=== PATIENT | female | born 1935 | race Caucasian/White ===

== ENCOUNTER 2017-06-22 19:14 | Observation (INO) | payer MEDICARE ==
[~2017-06-22] VITALS: Ht 165.1 cm; Wt 84.2 kg
[2017-06-22] VITALS (7 sets, daily range): BP systolic 130–208; BP diastolic 73–98; PULSE 63–75; RESP 18; TEMP 98–98.1; O2SAT 97–99
--- NOTE | 2017-06-22 19:42 | RADRPT ---
EXAM DATE/TIME: 06/22/2017 19:29 [facility] COMPARISON: No previous studies available for comparison. INDICATIONS : Stroke alert, visual changes today. RADIATION DOSE: 56.35 CTDIvol (mGy) This report was called by to Dr. Deutsch at 7: 39pm, with the call initiated at 7:35pm MEDICAL HISTORY : Non-responsive. SURGICAL HISTORY : Non-responsive. ENCOUNTER: Initial ACUITY: 1 day PAIN SCALE: Non-responsive LOCATION: Bilateral head TECHNIQUE: Multiple contiguous axial images were obtained of the head. Using automated exposure control and adj ustment of the mA and/or kV according to patient size, radiation dose was kept as low as reasonably a chievable to obtain optimal diagnostic quality images. DICOM format image data is available electro nically for review and comparison. FINDINGS: The patient is canted in the gantry creating some asymmetries. CEREBRUM: The ventricles are normal for age. No evidence of midline shift, mass lesion, hemorrhage or acute in farction. Symmetric bilateral decreased attenuation in the supratentorial white matter, more promine nt in the frontal and in the occipital region characteristic of ischemic change. There is associated extra-axial enlargement of the frontal horns. No extra-axial fluid collections are seen. POSTERIOR FOSSA: The cerebellum and brainstem are intact. The 4th ventricle is midline. The cerebellopontine angle i s unremarkable. EXTRACRANIAL: The visualized portion of the orbits is intact. SKULL: The calvaria is intact. No evidence of skull fracture. CONCLUSION: No acute findings in the brain. No evidence of acute hemorrhage. Ischemic white matter change in th e supratentorial brain. Maurice Mendez MD on June 22, 2017 at 19:35 Board Certified Radiologist. This report was verified electronically.
[2017-06-22 19:52] LABS: AUTOMATED NEUTROPHIL # 6.3 TH/MM3 (1.8-7.7); BASOPHIL % 0.4 % (0.0-2.0); EOSINOPHIL # 0.1 TH/MM3 (0-0.4); EOSINOPHIL % 1.6 % (0.0-4.0); HEMATOCRIT 37.1 % (35.0-46.0); HEMOGLOBIN 12.8 GM/DL (11.6-15.3); LYMPH % 15.3 % (9.0-44.0); LYMPHOCYTE # 1.3 TH/MM3 (1.0-4.8); MEAN CORPUSCULAR HEMOGLOBIN 32.6 PG (27.0-34.0); MEAN CORPUSCULAR HGB CONC 34.7 % (32.0-36.0); MEAN PLATELET VOLUME 7.1 FL (7.0-11.0); MONO % 7.3 % (0.0-8.0); MONOCYTE # 0.6 TH/MM3 (0-0.9); NEUT % 75.4 % (16.0-70.0); PLATELET COUNT 274 TH/MM3 (150-450); RED BLOOD COUNT 3.94 MIL/MM3 (4.00-5.30); RED CELL DISTRIBUTION WIDTH 12.7 % (11.6-17.2); WHITE BLOOD COUNT 8.4 TH/MM3 (4.0-11.0)
[2017-06-22] MEDS ORDERED: IOHEXOL 350 MG/ML 10 ML VIAL (for RAD DIAG) IVCONTRAST ONE (19:53)
[2017-06-22 19:58] LABS: PROTHROMBIN TIME - PATIENT 10.2 SEC (9.8-11.6)
[2017-06-22] MEDS ORDERED: ONDANSETRON HCL 4 MG/2 ML VIAL IV PUSH ONE (20:00)
[2017-06-22] MEDS ORDERED: MORPHINE SULFATE 2 MG/ML INJ IV PUSH ONE ×2 (20:00→21:00)
--- NOTE | 2017-06-22 20:00 | PD ---
HPI Chief Complaint: Headache Time Seen by Provider: 19:22 Travel History International Travel<30 days: No Contact w/Intl Traveler<30days: No Traveled to known affect area: No History of Present Illness HPI 82-year-old female presents to the emergency department by EMS transport for evaluation of sudden onset worst ever left frontal retro-orbital headache onset just prior to arrival to the emergency department 9/10 in intensity associated with nausea. Patient denies any visual disturbance or vision loss and denies any blurred vision or diplopia. Patient denies any dizziness, balance disturbance, confusion, difficulty with speech, upper or lower extremity numbness tingling or weakness. According to throat cutter report patient was quite hypertensive upon their initial assessment and patient reports that occasionally she has had bouts of elevated blood pressure but has never been on antihypertensive medication/therapy. Patient does have history of rheumatoid arthritis and pulmonary fibrosis. Patient denies taking any blood thinning agents other than low-dose aspirin. Patient reportedly had similar less intense headache last evening that resolved after Aleve. Patient did take 2 Aleve prior to arrival to the emergency department. Patient denies chest pain palpitations shortness of breath or referred neck jaw back shoulder arm pain. Patient denies any history of migraine or routine headaches. No recent febrile illness or respiratory illness. PFSH Past Medical History Narrative Medical Rheumatoid arthritis, pulmonary fibrosis, no tobacco use; nursing notes reviewed Social History Tobacco Use: No Allergies-Medications (Allergen,Severity, Reaction): Coded Allergies: Sulfa (Sulfonamide Antibiotics) (Verified Allergy, Severe, 06/22/17) Reported Meds & Prescriptions Reported Meds & Active Scripts Active Reported Ambien (Zolpidem Tartrate) 5 Mg Tab 5 Mg PO HS PRN Vitamin C (Ascorbic Acid) 250 Mg Chew 500 Mg CHEW DAILY Methenamine Hippurate 1 Gram Tab 1 Gm PO BID Levothyroxine (Levothyroxine Sodium) 88 Mcg Tab 88 Mcg PO DAILY Prednisone 5 Mg Tab 5 Mg PO DAILY Prozac (Fluoxetine HCl) 40 Mg Cap 40 Mg PO DAILY Review of Systems Except as stated in HPI: all other systems reviewed are Neg General / Constitutional: No: Fever, Chills Eyes: Positive: Photophobia, No: Diploplia, Blurred Vision, Redness, Foreign Body Sensation, Pain, Blind Spots, Visual changes, Blindness HENT: Positive: Headaches, No: Vertigo, Lightheadedness, Congestion, Neck Stiffness, Neck Pain Cardiovascular: No: Chest Pain or Discomfort, Palpitations, Syncope Respiratory: No: Shortness of Breath Gastrointestinal: Positive: Nausea, No: Vomiting Genitourinary: No: Flank Pain Musculoskeletal: No: Myalgias, Arthralgias, Weakness, Cramping, Edema, Pain Skin: No Rash Neurologic: Positive: Headache, No: Weakness, Dizziness, Syncope, Focal Abnormalities, Coordination Problem, Ataxia, Change in Mentation, Slurred Speech , Paresthesia, Seizures Psychiatric: No: Anxiety Hematologic/Lymphatic: No: Easy Bruising Physical Exam Narrative GENERAL: Well-developed well-nourished female in no respiratory distress appears to be in discomfort GCS is 15 SKIN: Warm and dry. HEAD: Atraumatic. Normocephalic. EYES: Pupils equal and round. Extraocular muscles are intact. Funduscopic exam no evidence of papilledema vessels are well visualized. No scleral icterus. No injection or drainage. ENT: No nasal bleeding or discharge. Mucous membranes pink and moist. Airway is patent. NECK: Trachea midline. No JVD. CARDIOVASCULAR: Regular rate and rhythm. RESPIRATORY: No accessory muscle use. Clear to auscultation except for few bibasilar crackles. Breath sounds equal bilaterally. GASTROINTESTINAL: Abdomen soft, non-tender, nondistended. Hepatic and splenic margins not palpable. MUSCULOSKELETAL: Extremities without clubbing, cyanosis, or edema. No obvious deformities. NEUROLOGICAL: Awake and alert. GCS 15. No obvious cranial nerve deficits; patient has visual deficit on visual gar to the left lateral lower field, right medial aspect. Motor grossly within normal limits. Five out of 5 muscle strength in the arms and legs. Normal speech. PSYCHIATRIC: Appropriate mood and affect; insight and judgment normal. Data Data Last Documented VS Vital Signs Date Time Temp Pulse Resp B/P (MAP) Pulse Ox O2 Delivery O2 Flow Rate FiO2 06/22/17 21:30 75 18 169/75 (106) 99 Nasal Cannula 2.00 06/22/17 19:15 98.1 Orders Orders Activity Bed Rest (06/22/17 ) Electrocardiogram (06/22/17 ) I-Stat Profile (06/22/17 19:22) Prothrombin Time / Inr (Pt) (06/22/17 19:22) Act Partial Throm Time (Ptt) (06/22/17 19:22) Complete Blood Count With Diff (06/22/17 19:) Fibrinogen (06/22/17 19:22) Creatine Kinase (Cpk) (06/22/17:) Troponin I (06/22/17:) Ua Includes Microscopic (06/22/17 19:22) Drug Screen, Random Urine (06/22/17:) Type And Screen (06/22/17:) Ct Brain W/O Iv Contrast(Rout) (06/22/17 ) Cta Brain W Iv Contrast W 3d (06/22/17 19:22) Cta Neck W Iv Contrast W 3d (06/22/17 19:22) Blood Glucose (06/22/17:) Ecg Monitoring (06/22/17:) Neuro Checks Q2HX12,Q4H (06/22/17 19:22) Nursing Bedside Swallow Assess .ONCE (06/22/17:) Iv Access Insert/Monitor (06/22/17:) NPO (06/22/17:) Oximetry (06/22/17:) Resp Oxygen Nc Stroke (06/22/17 ) Cath For Specimen (06/22/17:) Iohexol 350 Inj (Omnipaque 350 Inj) (06/22/17 19:53) Ondansetron Inj (Zofran Inj) (06/22/17 20:00) Morphine Inj (Morphine Inj) (06/22/17 20:00) Westergren Sedimentation Rate (06/22/17 20:01) Chest, Single Ap (06/22/17 ) Morphine Inj (Morphine Inj) (06/22/17 21:00) Ketorolac Inj (Toradol Inj) (06/22/17 21:00) Admit Order (Ed Use Only) (06/22/17 ) Tank Insulator Rubber / Telemetry MARTY.Q8H (06/22/17 21:38) Diet Heart Healthy (06/23/17 Breakfast) Activity Oob With Assistance (06/22/17 21:38) Notify Dr: Other (06/22/17 21:38) Ceftriaxone Inj (Rocephin Inj) (06/22/17 21:45) Mri Brain W/O Contrast (06/22/17 ) Labs Laboratory Tests Test 06/22/17 19:20 06/22/17 20:24 White Blood Count 8.4 TH/MM3 Red Blood Count 3.94 MIL/MM3 Hemoglobin 12.8 GM/DL Bedside Hemoglobin 12.6 G/DL Hematocrit 37.1 % Bedside Hematocrit 37.0 % Mean Corpuscular Volume 94.0 FL Mean Corpuscular Hemoglobin 32.6 PG Mean Corpuscular Hemoglobin Concent 34.7 % Red Cell Distribution Width 12.7 % Platelet Count 274 TH/MM3 Mean Platelet Volume 7.1 FL Neutrophils (%) (Auto) 75.4 % Lymphocytes (%) (Auto) 15.3 % Monocytes (%) (Auto) 7.3 % Eosinophils (%) (Auto) 1.6 % Basophils (%) (Auto) 0.4 % Neutrophils # (Auto) 6.3 TH/MM3 Lymphocytes # (Auto) 1.3 TH/MM3 Monocytes # (Auto) 0.6 TH/MM3 Eosinophils # (Auto) 0.1 TH/MM3 Basophils # (Auto) 0.0 TH/MM3 CBC Comment DIFF FINAL Differential Comment Erythrocyte Sedimentation Rate 31 mm/hr Prothrombin Time 10.2 SEC Prothromb Time International Ratio 1.0 RATIO Activated Partial Thromboplast Time 26.6 SEC Fibrinogen 265 mg/dL Bedside Sodium 137 MMOL/L Bedside Potassium 4.3 MMOL/L Bedside Chloride 101 MMOL/L Bedside Blood Urea Nitrogen 26 MG/DL Bedside Creatinine 1.1 MG/DL Bedside Glucose 105 MG/DL Total Creatine Kinase 46 U/L Troponin I LESS THAN 0.02 NG/ML Urine Color LIGHT-YELLOW Urine Turbidity HAZY Urine pH 7.0 Urine Specific [place] 1.019 Urine Protein NEG mg/dL Urine Glucose (UA) NEG mg/dL Urine Ketones NEG mg/dL Urine Occult Blood TRACE Urine Nitrite POS Urine Bilirubin NEG Urine Urobilinogen LESS THAN 2.0 MG/DL Urine Leukocyte Esterase LARGE Urine RBC 3 /hpf Urine WBC 48 /hpf Urine Squamous Epithelial Cells 3 /hpf Urine Amorphous Sediment RARE Urine Bacteria MANY /hpf Urine Mucus FEW /lpf Urine Opiates Screen NEG Urine Barbiturates Screen NEG Urine Amphetamines Screen NEG Urine Benzodiazepines Screen NEG Urine Cocaine Screen NEG Urine Cannabinoids Screen NEG MDM Medical Decision Making Medical Screen Exam Complete: Yes Emergency Medical Condition: Yes Medical Record Reviewed: Yes Interpretation(s) EKG normal sinus rhythm rate [address] elevation ectopy or injury pattern noted CBC & BMP Diagram 06/22/17 19:20 Vital Signs Date Time Temp Pulse Resp B/P (MAP) Pulse Ox O2 Delivery O2 Flow Rate FiO2 06/22/17 19:15 98.1 70 18 196/98 (130) 99 Neck CTA 06/22/171921 Signed Impressions: Service Date/Time: Thursday, June 22, 2017 19:40 - CONCLUSION: Negative CTA of the carotids. Maurice Mendez MD Head CTA 06/22/171921 Signed Impressions: Service Date/Time: Thursday, June 22, 2017 19:38 - CONCLUSION: Negative exam. No evidence of vessel truncation. Maurice Mendez MD Head CT 06/22/17 0000 Signed Impressions: Service Date/Time: Thursday, June 22, 2017 19:29 - CONCLUSION: No acute findings in the brain. No evidence of acute hemorrhage. Ischemic white matter change in the supratentorial brain. Maurice Mendez MD Differential Diagnosis Hypertensive urgency/crisis, CVA, TIA, subarachnoid hemorrhage, migraine variant , retinal artery occlusion, retinal vein occlusion, glaucoma, giant cell arteritis Narrative Course Patient placed on equipment monitor phototypesetting with continuous pulse oximetry IV access obtained EMS blood sugar,152; NIHSS: 1; stroke alert called at 19:[address] 19:24 NIHSS: 0, in CT no field deficit, normal finger count; deny any visual disturbance other than mild photophobia 19: 37 neurology --not tPA candidate Patient administered Zofran 4 mg IV and morphine sulfate 2mg IV [address] brain noncontrast as previously noted no acute process no bleed; CTA brain reveals no acute abnormality no aneurysm or AVM/vascular malformation ; CTA neck no acute process Discussed with patient proceeding with lumbar puncture which she declines with discussion of risk benefit in detail at bedside; patient also informed of abnormal urinalysis; recent febrile illness and recent antibiotic use; patient will be administered one-time dose of Rocephin 1 g IV piggyback states headache is much improved although still present. Patient will be admitted for further evaluation of cephalgia; neurology recommends MR studies in the a.m. Patient's case discussed with on-call medicine service [facility] MD Dr Epstein At 9:28 PM sister is at bedside and reports patient recently seen by Dr. Hartman patient confirms this states she had a CT does not recall any abnormality no other imaging or testing was performed reportedly patient saw Dr. Hartman because of balance disturbance and because of issues with handwriting although the handwriting issues have resolved. No report of headache at that time. Patient is followed by Dr. So For her pulmonary fibrosis. Patient and family confirm no prior history of cephalgia no family history of cerebral aneurysm or intracranial bleed. Physician Communication Physician Communication stroke alert 19:[address] 19: 24; Dr Mann 19:37 not tpa candidate; Dr Lafleur 19 :40 CT w/o neg Diagnosis Primary Impression: Cephalgia Qualified Codes: G44.53 - Primary thunderclap headache Additional Impressions: TIA (transient ischemic attack) Qualified Codes: G45.9 - Transient cerebral ischemic attack, unspecified UTI (urinary tract infection) Qualified Codes: N39.0 - Urinary tract infection, site not specified Tara Deutsch MD Jun 22, 2017 20:00
[2017-06-22 20:08] LABS: TROPONIN I LESS THAN 0.02 NG/ML (0.02-0.05)
--- NOTE | 2017-06-22 20:10 | RADRPT ---
EXAM DATE/TIME: 06/22/2017 19:38 [facility] COMPARISON: No previous studies available for comparison. INDICATIONS : Stroke alert, visual changes today. IV CONTRAST: 90 cc Omnipaque 350 (iohexol) IV ; Cumulative dose for multiple exams. RADIATION DOSE: 10.48 CTDIvol (mGy) ; Combined studies MEDICAL HISTORY : Non-responsive. SURGICAL HISTORY : Non-responsive. ENCOUNTER: Initial ACUITY: 1 day PAIN SCALE: Non-responsive LOCATION: Bilateral head TECHNIQUE: Volumetric scanning was performed using a multi-row detector CT scanner. The data was post processed with a variety of visualization algorithms including full volume maximum intensity projection, multi -planar sliding thin slab reformation, curved planar reformation, and surface rendering techniques. Using automated exposure control and adjustment of the mA and/or kV according to patient size, radiat ion dose was kept as low as reasonably achievable to obtain optimal diagnostic quality images. DICO M format image data is available electronically for review and comparison. FINDINGS: There is excellent visualization of the major intracranial arteries out to the second-order branch ve ssels. There is no evidence for aneurysm, vessel truncation or stenosis, and no evidence for vascula r malformation. The right posterior cerebral artery arises from the anterior circulation. CONCLUSION: Negative exam. No evidence of vessel truncation. Maurice Mendez MD on June 22, 2017 at 20:06 Board Certified Radiologist. This report was verified electronically.
--- NOTE | 2017-06-22 20:11 | RADRPT ---
EXAM DATE/TIME: 06/22/2017 19:40 [facility] COMPARISON: No previous studies available for comparison. INDICATIONS : Stroke alert, visual changes today. IV CONTRAST: 90 cc Omnipaque 350 (iohexol) IV ; Cumulative dose for multiple exams. RADIATION DOSE: 10.48 CTDIvol (mGy) ; Combined studies MEDICAL HISTORY : Non-responsive. SURGICAL HISTORY : Non-responsive. ENCOUNTER: Initial ACUITY: 1 day PAIN SCALE: Non-responsive LOCATION: Left neck Elevated flow velocities and ICA/CCA ratios have been found to correlate with increased degrees of vessel stenosis, calculated as percentage of diameter relative to a normal segment of distal ICA/CCA. TECHNIQUE: Volumetric scanning was performed using a multirow detector CT scanner. The data was post processed with a variety of visualization algorithms including full-volume maximum intensity projection, multip lanar sliding thin-slab reformation, curved-planar reformation, and surface-rendering techniques. Us ing automated exposure control and adjustment of the mA and/or kV according to patient size, radiatio n dose was kept as low as reasonably achievable to obtain optimal diagnostic quality images. DICOM f ormat image data is available electronically for review and comparison. FINDINGS: AORTIC ARCH: There is a 2-vessel origin of the great vessels from the aorta. No evidence of ostial narrowing. RIGHT CAROTID: The common carotid artery is intact. The carotid bulb has a normal configuration without ulceration o r narrowing. The internal carotid artery lumen is smooth without stenosis. The external carotid sandeep ry is intact. LEFT CAROTID: The common carotid artery is intact. The carotid bulb has a normal configuration without ulceration or narrowing. The internal carotid artery lumen is smooth without stenosis. The external carotid ar marisel is intact. VERTEBRALS: The vertebral arteries have a symmetric diameter. No stenotic lesions are seen. CONCLUSION: Negative CTA of the carotids. Maurice Mendez MD on June 22, 2017 at 20:07 Board Certified Radiologist. This report was verified electronically.
[2017-06-22] MEDS ORDERED: AMBI5TAB PO (20:17)
[2017-06-22] MEDS ORDERED: PRED5TAB PO (20:17)
[2017-06-22] MEDS ORDERED: PROZ40CA PO (20:17)
[2017-06-22] MEDS ORDERED: METH1TAB2 PO (20:17)
[2017-06-22] MEDS ORDERED: VITA250C3 CHEW (20:17)
[2017-06-22] MEDS ORDERED: LEVO88TA2 PO (20:17)
[2017-06-22 20:45] LABS: AMORPHOUS SEDIMENT, URINE RARE; BACTERIA, URINE MANY /hpf; BILIRUBIN, URINE NEG (NEG); BLOOD, URINE TRACE (NEG); GLUCOSE,URINE NEG (NEG); KETONE, URINE NEG (NEG); MUCUS URINE FEW /lpf (OCC); NITRITE,URINE POS (NEG); SQUAMOUS EPITHELIAL CELL URINE 3 /hpf (0-5); URINE COLOR LIGHT-YELLOW (YELLW/STRAW); URINE LEUKOCYTE ESTERASE LARGE (NEG)
--- NOTE | 2017-06-22 20:58 | RADRPT ---
EXAM DATE/TIME: 06/22/2017 20:33 [facility] COMPARISON: No previous studies available for comparison. INDICATIONS : Stroke alert. Short of breath. MEDICAL HISTORY : None. SURGICAL HISTORY : None. ENCOUNTER: Initial ACUITY: 1 day PAIN SCORE: 0/10 LOCATION: Bilateral chest FINDINGS: Prominent diffuse interstitial markings at the peripheral one 3rd of both lungs and in both lower dayan gs. There is partial loss of delineation right hemidiaphragm. The heart is upper limits normal for AP technique. No definite pleural effusion. No evidence of pneumothorax. CONCLUSION: Prominent interstitial markings in periphery both lungs suggesting pulmonary fibrosis. Maurice Mendez MD on June 22, 2017 at 20:55 Board Certified Radiologist. This report was verified electronically.
[2017-06-22] MEDS ORDERED: KETOROLAC TROMETHAMINE 30 MG/ML (IVP) VIAL IV PUSH ONE (21:00)
--- NOTE | 2017-06-22 21:42 | HHI.HP ---
[facility] Primary Care Physician Non-Staff Admission Diagnosis TIA; cephalgia; uti; htn Diagnoses: Travel History International Travel<30 Days: No Contact w/Intl Traveler <30 Da: No Traveled to Known Affected Are: No Past Family Social History Allergies: Coded Allergies: Sulfa (Sulfonamide Antibiotics) (Verified Allergy, Severe, 06/22/17) Physical Exam Vital Signs Vital Signs Date Time Temp Pulse Resp B/P (MAP) Pulse Ox O2 Delivery O2 Flow Rate FiO2 06/22/17 21:30 99 Nasal Cannula 2.00 06/22/17 20:25 70 18 179/82 (114) 98 Nasal Cannula 2.00 06/22/17 19:50 70 18 193/93 (126) 98 Nasal Cannula 2.00 06/22/17 19:30 72 18 208/97 (134) 98 Nasal Cannula 2.00 06/22/17 19:25 97 2.00 06/22/17 19:15 98.1 70 18 196/98 (130) 99 06/22/17 19:15 18 98 Nasal Cannula 2.00 06/22/17 19:15 98 Nasal Cannula 2.00 Physical Exam GENERAL: This is a well-nourished, well-developed patient, in no apparent distress. SKIN: No rashes, ecchymoses or lesions. Cool and dry. HEAD: Atraumatic. Normocephalic. No temporal or scalp tenderness. EYES: Pupils equal round and reactive. Extraocular motions intact. No scleral icterus. No injection or drainage. ENT: Nose without bleeding, purulent drainage or septal hematoma. Throat without erythema, tonsillar hypertrophy or exudate. Uvula midline. Airway patent. NECK: Trachea midline. No JVD or lymphadenopathy. Supple, nontender, no meningeal signs. CARDIOVASCULAR: Regular rate and rhythm without murmurs, gallops, or rubs. RESPIRATORY: Clear to auscultation. Breath sounds equal bilaterally. No wheezes , rales, or rhonchi. GASTROINTESTINAL: Abdomen soft, non-tender, nondistended. No hepato-splenomegaly , or palpable masses. No guarding. MUSCULOSKELETAL: Extremities without clubbing, cyanosis, or edema. No joint tenderness, effusion, or edema noted. No calf tenderness. Negative Homans sign bilaterally. NEUROLOGICAL: Awake and alert. Cranial nerves II through XII intact. Motor and sensory grossly within normal limits. Five out of 5 muscle strength in all muscle groups. Normal speech. Laboratory Laboratory Tests Test 06/22/17 19:20 06/22/17 20:24 White Blood Count 8.4 Red Blood Count 3.94 Hemoglobin 12.8 Bedside Hemoglobin 12.6 Hematocrit 37.1 Bedside Hematocrit 37.0 Mean Corpuscular Volume 94.0 Mean Corpuscular Hemoglobin 32.6 Mean Corpuscular Hemoglobin Concent 34.7 Red Cell Distribution Width 12.7 Platelet Count 274 Mean Platelet Volume 7.1 Neutrophils (%) (Auto) 75.4 Lymphocytes (%) (Auto) 15.3 Monocytes (%) (Auto) 7.3 Eosinophils (%) (Auto) 1.6 Basophils (%) (Auto) 0.4 Neutrophils # (Auto) 6.3 Lymphocytes # (Auto) 1.3 Monocytes # (Auto) 0.6 Eosinophils # (Auto) 0.1 Basophils # (Auto) 0.0 CBC Comment DIFF FINAL Differential Comment Erythrocyte Sedimentation Rate 31 Prothrombin Time 10.2 Prothromb Time International Ratio 1.0 Activated Partial Thromboplast Time 26.6 Fibrinogen 265 Bedside Sodium 137 Bedside Potassium 4.3 Bedside Chloride 101 Bedside Blood Urea Nitrogen 26 Bedside Creatinine 1.1 Bedside Glucose 105 Total Creatine Kinase 46 Troponin I LESS THAN 0.02 Urine Color LIGHT-YELLOW Urine Turbidity HAZY Urine pH 7.0 Urine Specific [place] 1.019 Urine Protein NEG Urine Glucose (UA) NEG Urine Ketones NEG Urine Occult Blood TRACE Urine Nitrite POS Urine Bilirubin NEG Urine Urobilinogen LESS THAN 2.0 Urine Leukocyte Esterase LARGE Urine RBC 3 Urine WBC 48 Urine Squamous Epithelial Cells 3 Urine Amorphous Sediment RARE Urine Bacteria MANY Urine Mucus FEW Urine Opiates Screen NEG Urine Barbiturates Screen NEG Urine Amphetamines Screen NEG Urine Benzodiazepines Screen NEG Urine Cocaine Screen NEG Urine Cannabinoids Screen NEG Result Diagram: 06/22/171919 Caprini VTE Risk Assessment Caprini Risk Assessment Model Point Value = 1 Point Value = 2 Point Value = 3 Point Value = 5 Age 41-60 Minor surgery BMI > 25 kg/m2 Swollen legs Varicose veins or History of unexplained or recurrent spontaneous Oral contraceptives or hormone replacement Sepsis (< 1 month) Serious lung disease, including pneumonia (< 1 month) Abnormal pulmonary function Acute myocardial infarction Congestive heart failure (< 1 month) History of inflammatory bowel disease Medical patient at bed rest Age 61-74 Arthroscopic surgery Major open surgery (> 45 min) Laparoscopic surgery (> 45 min) Malignancy Confined to bed (> 72 hours) Immobilizing plaster cast Central venous access Age >= 75 History of VTE Family history of VTE Factor V Leiden Prothrombin [id number] Lupus anticoagulant Anticardiolipin antibodies Elevated serum homocysteine Heparin-induced thrombocytopenia Other congenital or acquired thrombophilia Stroke (< 1 month) Elective arthroplasty Hip, pelvis, or leg fracture Acute spinal cord injury (< 1 month) Prophylaxis Regimen Total Risk Factor Score Risk Level Prophylaxis Regimen 0-1 Low Early ambulation 2 Moderate Order ONE of the following: *Sequential Compression Device (SCD) *Heparin 5000 units SQ BID 3-4 Higher Order ONE of the following medications: *Heparin 5000 units SQ TID *Enoxaparin/Lovenox 40 mg SQ daily (WT < 150 kg, CrCl > 30 mL/min) *Enoxaparin/Lovenox 30 mg SQ daily (WT < 150 kg, CrCl > 10-29 mL/min) *Enoxaparin/Lovenox 30 mg SQ BID (WT < 150 kg, CrCl > 30 mL/min) AND/OR *Sequential Compression Device (SCD) 5 or more Highest Order ONE of the following medications: *Heparin 5000 units SQ TID (Preferred with Epidurals) *Enoxaparin/Lovenox 40 mg SQ daily (WT < 150 kg, CrCl > 30 mL/min) *Enoxaparin/Lovenox 30 mg SQ daily (WT < 150 kg, CrCl > 10-29 mL/min) *Enoxaparin/Lovenox 30 mg SQ BID (WT < 150 kg, CrCl > 30 mL/min) AND *Sequential Compression Device (SCD) Physician Certification Order for Inpatient Services The services are ordered in accordance with Medicare regulations or non- Medicare payer requirements, as applicable. In the case of services not specified as inpatient-only, they are appropriately provided as inpatient services in accordance with the 2-midnight benchmark. days is the estimated time the patient will need to remain in the hospital, assuming treatment plan goals are met and no additional complications. Jasmyn Epstein MD Jun 22, 2017 21:42
[2017-06-22] MEDS ORDERED: ENALAPRILAT 1.25 MG/ML VIAL IV PUSH PRN (21:45)
[2017-06-22] MEDS ORDERED: ACETAMINOPHEN 325 MG TAB PO PRN (21:45)
[2017-06-22] MEDS ORDERED: LACTULOSE SYRUP 20 GM/30 ML CUP PO PRN (21:45)
[2017-06-22] MEDS ORDERED: SENNOSIDES 8.6 MG TAB PO PRN (21:45)
[2017-06-22] MEDS ORDERED: BISACODYL 10 MG SUPP RECTAL PRN (21:45)
[2017-06-22] MEDS ORDERED: ACETAMINOPHEN/HYDROcodone 325 MG/5 MG TAB PO PRN (21:45)
[2017-06-22] MEDS ORDERED: cefTRIAXone INJ 1,000 MG in SODIUM CHLORIDE 0.9% INJ 100 ML IV ONE (21:45)
[2017-06-22] MEDS ORDERED: MORPHINE SULFATE 2 MG/ML INJ IV PUSH PRN (21:45)
[2017-06-22] MEDS ORDERED: MAGNESIUM HYDROXIDE SUSP 30 ML CUP PO PRN (21:45)
[2017-06-22] MEDS ORDERED: SODIUM CHLORIDE 0.9% FLUSH 10 ML FLUSH IV FLUSH PRN (21:45)
[2017-06-22] MEDS ORDERED: ONDANSETRON HCL 4 MG/2 ML VIAL IVP PRN (21:45)
--- NOTE | 2017-06-22 22:05 | HHI.HP ---
HPI Service [facility] Primary Care Physician Non-Staff Admission Diagnosis TIA; cephalgia; uti; htn Diagnoses: (1) TIA (transient ischemic attack) Diagnosis: Principal (2) Cephalgia Diagnosis: Principal (3) HTN (hypertension) Diagnosis: Principal (4) UTI (urinary tract infection) Diagnosis: Principal Travel History International Travel<30 Days: No Contact w/Intl Traveler <30 Da: No Traveled to Known Affected Are: No History of Present Illness This is an 82-year-old female with a PMH of Rheumatoid Arthritis and Pulmonary Fibrosis on Chronic Steroid Therapy was brought to the ER by EMS secondary to acute onset of severe headache. Per patient, states she had sudden onset of left-sided frontal headache starting earlier tonight. Pain is constant, severe , 10/10, non-radiating, associated w/ nausea, no vomiting. Denies visual disturbance. No h/o headache in the past. Upon further questioning, states she was referred to Dr. Hartman approx 2wks ago for eval of "gait imbalance" and worsening handwriting. States she had outpatient imaging done but does not know results. On arrival, BP 196/98, HR 70, O2 sat 98% to 2L NC, Afebrile. CBC unremarkable. ESR 31. BUN 26. Troponin negative. 1.0. UTI. Urine Drug screen negative. CT Head with no acute findings. CXR with pulmonary fibrosis. CTA Neck negative. CTA Brain negative. While in ER, concern for possible visual disturbance and CVA, at which time Stroke Alert initiated by ER physician. Dr. Mann consulted, pt not TPA candidate, recommended further eval w/ MRI. Pt offered LP, however declined. Review of Systems Except as stated in HPI: all other systems reviewed are Neg ROS: 14 point review of systems otherwise negative. Past Family Social History Past Medical History PMH: Rheumatoid Arthritis and Pulmonary Fibrosis on Chronic Steroid Therapy Past Surgical History PAST SURGICAL HISTORY: Appendectomy, Tubal Ligation, D&C Allergies: Coded Allergies: Sulfa (Sulfonamide Antibiotics) (Verified Allergy, Severe, 06/22/17) Family History PAST FAMILY HISTORY: Reviewed. No h/o DM or CAD Social History PAST SOCIAL HISTORY: Negative for alcohol, tobacco or drugs. Physical Exam Vital Signs Vital Signs Date Time Temp Pulse Resp B/P (MAP) Pulse Ox O2 Delivery O2 Flow Rate FiO2 06/22/17 21:30 75 18 169/75 (106) 99 Nasal Cannula 2.00 06/22/17 21:30 99 Nasal Cannula 2.00 06/22/17 20:25 70 18 179/82 (114) 98 Nasal Cannula 2.00 06/22/17 19:50 70 18 193/93 (126) 98 Nasal Cannula 2.00 06/22/17 19:30 72 18 208/97 (134) 98 Nasal Cannula 2.00 06/22/17 19:25 97 2.00 06/22/17 19:15 98.1 70 18 196/98 (130) 99 06/22/17 19:15 18 98 Nasal Cannula 2.00 06/22/17 19:15 98 Nasal Cannula 2.00 Physical Exam PE: GENERAL: Pleasant elderly white female in no acute distress, complains of headache. Family at bedside. HEENT: PERRLA, EOMI. No scleral icterus or conjunctival pallor. No lid lag or facial droop. CARDIOVASCULAR: Regular rate and rhythm. No obvious murmurs to auscultation. No chest tenderness to palpation. RESPIRATORY: No obvious rhonchi or wheezing. Clear to auscultation. Breath sounds equal bilaterally. GASTROINTESTINAL: Abdomen soft, non-tender, nondistended. BS normal. MUSCULOSKELETAL: Extremities without clubbing, cyanosis, or edema. No obvious deformities. NEUROLOGICAL: Awake, alert and oriented x4. No focal neurologic deficits. Moving both upper and lower extremities spontaneously. Laboratory Laboratory Tests Test 06/22/17 19:20 06/22/17 20:24 White Blood Count 8.4 Red Blood Count 3.94 Hemoglobin 12.8 Bedside Hemoglobin 12.6 Hematocrit 37.1 Bedside Hematocrit 37.0 Mean Corpuscular Volume 94.0 Mean Corpuscular Hemoglobin 32.6 Mean Corpuscular Hemoglobin Concent 34.7 Red Cell Distribution Width 12.7 Platelet Count 274 Mean Platelet Volume 7.1 Neutrophils (%) (Auto) 75.4 Lymphocytes (%) (Auto) 15.3 Monocytes (%) (Auto) 7.3 Eosinophils (%) (Auto) 1.6 Basophils (%) (Auto) 0.4 Neutrophils # (Auto) 6.3 Lymphocytes # (Auto) 1.3 Monocytes # (Auto) 0.6 Eosinophils # (Auto) 0.1 Basophils # (Auto) 0.0 CBC Comment DIFF FINAL Differential Comment Erythrocyte Sedimentation Rate 31 Prothrombin Time 10.2 Prothromb Time International Ratio 1.0 Activated Partial Thromboplast Time 26.6 Fibrinogen 265 Bedside Sodium 137 Bedside Potassium 4.3 Bedside Chloride 101 Bedside Blood Urea Nitrogen 26 Bedside Creatinine 1.1 Bedside Glucose 105 Total Creatine Kinase 46 Troponin I LESS THAN 0.02 Urine Color LIGHT-YELLOW Urine Turbidity HAZY Urine pH 7.0 Urine Specific [place] 1.019 Urine Protein NEG Urine Glucose (UA) NEG Urine Ketones NEG Urine Occult Blood TRACE Urine Nitrite POS Urine Bilirubin NEG Urine Urobilinogen LESS THAN 2.0 Urine Leukocyte Esterase LARGE Urine RBC 3 Urine WBC 48 Urine Squamous Epithelial Cells 3 Urine Amorphous Sediment RARE Urine Bacteria MANY Urine Mucus FEW Urine Opiates Screen NEG Urine Barbiturates Screen NEG Urine Amphetamines Screen NEG Urine Benzodiazepines Screen NEG Urine Cocaine Screen NEG Urine Cannabinoids Screen NEG Result Diagram: 06/22/171919 Caprini VTE Risk Assessment Caprini VTE Risk Assessment: No/Low Risk (score <= 1) Caprini Risk Assessment Model Point Value = 1 Point Value = 2 Point Value = 3 Point Value = 5 Age 41-60 Minor surgery BMI > 25 kg/m2 Swollen legs Varicose veins or History of unexplained or recurrent spontaneous Oral contraceptives or hormone replacement Sepsis (< 1 month) Serious lung disease, including pneumonia (< 1 month) Abnormal pulmonary function Acute myocardial infarction Congestive heart failure (< 1 month) History of inflammatory bowel disease Medical patient at bed rest Age 61-74 Arthroscopic surgery Major open surgery (> 45 min) Laparoscopic surgery (> 45 min) Malignancy Confined to bed (> 72 hours) Immobilizing plaster cast Central venous access Age >= 75 History of VTE Family history of VTE Factor V Leiden Prothrombin [id number] Lupus anticoagulant Anticardiolipin antibodies Elevated serum homocysteine Heparin-induced thrombocytopenia Other congenital or acquired thrombophilia Stroke (< 1 month) Elective arthroplasty Hip, pelvis, or leg fracture Acute spinal cord injury (< 1 month) Prophylaxis Regimen Total Risk Factor Score Risk Level Prophylaxis Regimen 0-1 Low Early ambulation 2 Moderate Order ONE of the following: *Sequential Compression Device (SCD) *Heparin 5000 units SQ BID 3-4 Higher Order ONE of the following medications: *Heparin 5000 units SQ TID *Enoxaparin/Lovenox 40 mg SQ daily (WT < 150 kg, CrCl > 30 mL/min) *Enoxaparin/Lovenox 30 mg SQ daily (WT < 150 kg, CrCl > 10-29 mL/min) *Enoxaparin/Lovenox 30 mg SQ BID (WT < 150 kg, CrCl > 30 mL/min) AND/OR *Sequential Compression Device (SCD) 5 or more Highest Order ONE of the following medications: *Heparin 5000 units SQ TID (Preferred with Epidurals) *Enoxaparin/Lovenox 40 mg SQ daily (WT < 150 kg, CrCl > 30 mL/min) *Enoxaparin/Lovenox 30 mg SQ daily (WT < 150 kg, CrCl > 10-29 mL/min) *Enoxaparin/Lovenox 30 mg SQ BID (WT < 150 kg, CrCl > 30 mL/min) AND *Sequential Compression Device (SCD) Assessment and Plan Problem List: (1) TIA (transient ischemic attack) ICD Code: G45.9 - Transient cerebral ischemic attack, unspecified Status: Acute (2) Cephalgia ICD Code: R51 - Headache Status: Acute (3) HTN (hypertension) ICD Code: I10 - Essential (primary) hypertension (4) UTI (urinary tract infection) ICD Code: N39.0 - Urinary tract infection, site not specified Status: Acute Assessment and Plan A/P: 1. TIA: acute onset of headache w/ transient visual deficits while in ER, now resolved. CT Head negative, CTA Neck/Head negative for acute findings, images reviewed by me. Dr. Mann consulted, recommended further eval w/ MRI, currently pending. Will follow up MRI. Neuro checks. Recent eval by Dr. Hartman as outpatient for gait instability, will consult. 2. Cephalgia: w/ associated nausea, no vomiting, possibly related to uncontrolled HTN. ESR minimally elevated, on chronic steroid therapy, unlikely vasculitis/arteritis. Continue w/ analgesics/antiemetics. LP offered, however pt declined. Monitor neuro status closely. 3. HTN: Uncontrolled. BP 208/97, HR 72, likely secondary to pain complaints, now down to 169/75, HR 75 after analgesia. Optimize pain control, monitor BP, antihypertensives for BP >200 4. UTI: U/a w/ UTI. Start IV Rocephin. Follow up urine cultures, IVF for hydration. 5. DVT Prophylaxis: SCD/teds. 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 7. Case discussed at length with ER physician, lab/records/imaging reviewed by me. Problem Qualifiers (1) TIA (transient ischemic attack): Qualified Codes: G45.9 - Transient cerebral ischemic attack, unspecified (2) Cephalgia: Qualified Codes: G44.53 - Primary thunderclap headache (3) UTI (urinary tract infection): Qualified Codes: N39.0 - Urinary tract infection, site not specified Jasmyn Epstein MD Jun 22, 2017 22:05
--- NOTE | 2017-06-22 22:53 | RADRPT ---
EXAM DATE/TIME: 06/22/2017 22:24 [place] COMPARISON: CTA CAROTID ARTERIES W 3D RECON, June 22, 2017, 19:40. CTA BRAIN W 3D RECON, June 22, 2017, 19:38. CT BRAIN W/O CONTRAST, June 22, 2017, 19:29. INDICATIONS : Cephalgia. Ataxia. MEDICAL HISTORY : Rheumatoid arthritis. Pulmonary fibrosis. SURGICAL HISTORY : Appendectomy. Tubal ligation. ENCOUNTER: Initial ACUITY: 1 day PAIN SCORE: 4/10 LOCATION: Left eye. TECHNIQUE: Multiplanar, multisequence MRI of the brain was performed without contrast. FINDINGS: CEREBRUM: The ventricles are normal for age. No evidence of midline shift, mass lesion, hemorrhage or acute in farction. No extraaxial fluid collections are seen. The pituitary gland and suprasellar cistern are normal in configuration. WHITE MATTER: Prominent T2 prolongation in the periventricular white matter, more prominent in the frontal and occi pital region, characteristic of diffuse ischemic change. POSTERIOR FOSSA: The cerebellum and brainstem are intact. The 4th ventricle is midline. The cerebellopontine angle is unremarkable. The cerebellar tonsils are normal in position. DIFFUSION IMAGING: No focal areas of restricted diffusion are seen. No evidence of acute infarction. EXTRACRANIAL: The visualized portions of the orbits and paranasal sinuses are unremarkable. CONCLUSION: 1. Ischemic white matter signal change in the supratentorial brain. 2. No evidence of acute infarction. Maurice Mendez MD on June 22, 2017 at 22:49 Board Certified Radiologist. This report was verified electronically.
[2017-06-23] VITALS (8 sets, daily range): BP systolic 135–178; BP diastolic 67–88; PULSE 55–70; RESP 18–20; TEMP 98.2–98.5; O2SAT 95–98
--- NOTE | 2017-06-23 00:39 | EKG ---
Date Performed: 06/22/2017 Time Performed: 19:22:34 PTAGE: 82 years EKG: Sinus rhythm BORDERLINE LEFT AXIS DEVIATION VOLTAGE CRITERIA FOR LVH ABNORMAL ECG INTERPRETATION BASED ON A DEFAU LT AGE OF 40 YEARS NO PREVIOUS TRACING DOCTOR: Alfredo Castro Interpretating Date/Time 06/23/2017 00:37:45
[2017-06-23] MEDS: SODIUM CHLOR 0.9% 1000 ML INJ 1,000 ML IV SCH ×2 (04:53→07:40)
[2017-06-23] MEDS ORDERED: LEVOTHYROXINE SODIUM 88 MCG TAB PO SCH (06:00)
[2017-06-23 08:52] LABS: AUTOMATED NEUTROPHIL # 5.2 TH/MM3 (1.8-7.7); BASOPHIL % 0.4 % (0.0-2.0); EOSINOPHIL # 0.4 TH/MM3 (0-0.4); EOSINOPHIL % 4.6 % (0.0-4.0); HEMATOCRIT 38.6 % (35.0-46.0); HEMOGLOBIN 13.2 GM/DL (11.6-15.3); LYMPH % 21.1 % (9.0-44.0); LYMPHOCYTE # 1.7 TH/MM3 (1.0-4.8); MEAN CELL VOLUME 95.5 FL (80.0-100.0); MEAN CORPUSCULAR HEMOGLOBIN 32.8 PG (27.0-34.0); MEAN CORPUSCULAR HGB CONC 34.3 % (32.0-36.0); MEAN PLATELET VOLUME 7.1 FL (7.0-11.0); MONO % 10.4 % (0.0-8.0); MONOCYTE # 0.8 TH/MM3 (0-0.9); NEUT % 63.5 % (16.0-70.0); PLATELET COUNT 276 TH/MM3 (150-450); RED BLOOD COUNT 4.04 MIL/MM3 (4.00-5.30); RED CELL DISTRIBUTION WIDTH 13.2 % (11.6-17.2); WHITE BLOOD COUNT 8.2 TH/MM3 (4.0-11.0)
[2017-06-23] MEDS ORDERED: PRAVASTATIN SOD 40 MG TAB PO SCH (09:00)
[2017-06-23] MEDS ORDERED: ASCORBIC ACID 500 MG TAB PO SCH (09:00)
[2017-06-23] MEDS ORDERED: FLUoxetine HCL 20 MG CAP PO SCH (09:00)
[2017-06-23] MEDS ORDERED: SODIUM CHLORIDE 0.9% FLUSH 10 ML FLUSH IV FLUSH SCH (09:00)
[2017-06-23] MEDS ORDERED: ASPIRIN EC 81 MG TABEC PO SCH (09:00)
[2017-06-23] MEDS ORDERED: predniSONE 5 MG TAB PO SCH (09:00)
[2017-06-23] MEDS ORDERED: DOCUSATE SODIUM 50 MG/SENNA 8.6 MG TAB PO SCH (09:00)
[2017-06-23 09:20] LABS: ALBUMIN 3.6 GM/DL (3.4-5.0); AST (GOT) 18 U/L (15-37); BICARBONATE 26.2 MEQ/L (21.0-32.0); BLOOD UREA NITROGEN 20 MG/DL (7-18); CALCIUM 8.8 MG/DL (8.5-10.1); CHLORIDE 102 MEQ/L (98-107); CHOLESTEROL 260 MG/DL (120-200); CREATININE 1.05 MG/DL (0.50-1.00); GLOMERULAR FILTRATION RATE 50 ML/MIN (>89); SODIUM (NA) 135 MEQ/L (136-145); TRIGLYCERIDES 96 MG/DL (42-150)
[2017-06-23 09:21] LABS: ALT (GPT) 18 U/L (10-53); GLUCOSE,RANDOM 80 MG/DL (74-106)
[2017-06-23 09:24] LABS: ALKALINE PHOSPHATASE 85 U/L (45-117); CHOLESTEROL/ HDL RATIO 2.81 RATIO; HDL CHOLESTEROL 92.3 MG/DL (40.0-60.0); LDL CHOLESTEROL 149 MG/DL (0-99); TOTAL BILIRUBIN ADULT 0.6 MG/DL (0.2-1.0); TOTAL PROTEIN 7.4 GM/DL (6.4-8.2)
--- NOTE | 2017-06-23 12:14 | HHI.PR ---
Subjective Remarks This is an 82-year-old female with a PMH of Rheumatoid Arthritis and Pulmonary Fibrosis on Chronic Steroid Therapy was brought to the ER by EMS secondary to acute onset of severe headache. Per patient, states she had sudden onset of left-sided frontal headache starting earlier tonight. Pain is constant, severe , 10/10, non-radiating, associated w/ nausea, no vomiting. Denies visual disturbance. No h/o headache in the past. Upon further questioning, states she was referred to Dr. Hartman approx 2wks ago for eval of "gait imbalance" and worsening handwriting. States she had outpatient imaging done but does not know results. On arrival, BP 196/98, HR 70, O2 sat 98% to 2L NC, Afebrile. CBC unremarkable. ESR 31. BUN 26. Troponin negative. 1.0. UTI. Urine Drug screen negative. CT Head with no acute findings. CXR with pulmonary fibrosis. CTA Neck negative. CTA Brain negative. While in ER, concern for possible visual disturbance and CVA, at which time Stroke Alert initiated by ER physician. Dr. Arriaga consulted, pt not TPA candidate, recommended further eval w/ MRI. Pt offered LP, however declined. 2-11 has a headache right now but is improved MRIs all been negative. Can hopefully be discharged later today Cleared by neurology Dr. ARRIAGA Is scheduled to follow-up with pulmonary tomorrow EEG has been ordered ABG has been ordered And patient can be discharged later today Objective Vitals Vital Signs Date Time Temp Pulse Resp B/P (MAP) Pulse Ox O2 Delivery O2 Flow Rate FiO2 06/23/17 11:02 97 21 06/23/17 08:23 98.2 70 20 178/88 (118) 98 06/23/17 04:20 98.5 56 18 135/67 (89) 95 06/23/17 04:04 55 06/23/17 01:15 58 06/22/17 23:17 98.0 63 18 130/73 (92) 99 06/22/17 23:01 06/22/17 21:30 75 18 169/75 (106) 99 Nasal Cannula 2.00 06/22/17 21:30 99 Nasal Cannula 2.00 06/22/17 20:25 70 18 179/82 (114) 98 Nasal Cannula 2.00 2/10/18 19:50 70 18 193/93 (126) 98 Nasal Cannula 2.00 06/22/17 19:30 72 18 208/97 (134) 98 Nasal Cannula 2.00 06/22/17 19:25 97 2.00 06/22/17 19:15 98.1 70 18 196/98 (130) 99 06/22/17 19:15 18 98 Nasal Cannula 2.00 06/22/17 19:15 98 Nasal Cannula 2.00 I/O 06/22/17 06/22/17 06/22/17 06/23/17 06/23/17 06/23/17 07:00 15:00 23:00 07:00 15:00 23:00 # Voids 1 Result Diagram: 06/23/17 0810 06/23/17 0810 Other Results Laboratory Tests Test 06/22/17 19:20 06/22/17 20:24 06/23/17 08:10 06/23/17 11:35 White Blood Count 8.4 TH/MM3 8.2 TH/MM3 Red Blood Count 3.94 MIL/MM3 4.04 MIL/MM3 Hemoglobin 12.8 GM/DL 13.2 GM/DL Bedside Hemoglobin 12.6 G/DL Hematocrit 37.1 % 38.6 % Bedside Hematocrit 37.0 % Mean Corpuscular Volume 94.0 FL 95.5 FL Mean Corpuscular Hemoglobin 32.6 PG 32.8 PG Mean Corpuscular Hemoglobin Concent 34.7 % 34.3 % Red Cell Distribution Width 12.7 % 13.2 % Platelet Count 274 TH/MM3 276 TH/MM3 Mean Platelet Volume 7.1 FL 7.1 FL Neutrophils (%) (Auto) 75.4 % 63.5 % Lymphocytes (%) (Auto) 15.3 % 21.1 % Monocytes (%) (Auto) 7.3 % 10.4 % Eosinophils (%) (Auto) 1.6 % 4.6 % Basophils (%) (Auto) 0.4 % 0.4 % Neutrophils # (Auto) 6.3 TH/MM3 5.2 TH/MM3 Lymphocytes # (Auto) 1.3 TH/MM3 1.7 TH/MM3 Monocytes # (Auto) 0.6 TH/MM3 0.8 TH/MM3 Eosinophils # (Auto) 0.1 TH/MM3 0.4 TH/MM3 Basophils # (Auto) 0.0 TH/MM3 0.0 TH/MM3 CBC Comment DIFF FINAL DIFF FINAL Differential Comment Erythrocyte Sedimentation Rate 31 mm/hr Prothrombin Time 10.2 SEC Prothromb Time International Ratio 1.0 RATIO Activated Partial Thromboplast Time 26.6 SEC Fibrinogen 265 mg/dL Bedside Sodium 137 MMOL/L Bedside Potassium 4.3 MMOL/L Bedside Chloride 101 MMOL/L Bedside Blood Urea Nitrogen 26 MG/DL Bedside Creatinine 1.1 MG/DL Bedside Glucose 105 MG/DL Total Creatine Kinase 46 U/L Troponin I LESS THAN 0.02 NG/ML Urine Color LIGHT-YELLOW Urine Turbidity HAZY Urine pH 7.0 Urine Specific [place] 1.019 Urine Protein NEG mg/dL Urine Glucose (UA) NEG mg/dL Urine Ketones NEG mg/dL Urine Occult Blood TRACE Urine Nitrite POS Urine Bilirubin NEG Urine Urobilinogen LESS THAN 2.0 MG/DL Urine Leukocyte Esterase LARGE Urine RBC 3 /hpf Urine WBC 48 /hpf Urine Squamous Epithelial Cells 3 /hpf Urine Amorphous Sediment RARE Urine Bacteria MANY /hpf Urine Mucus FEW /lpf Urine Opiates Screen NEG Urine Barbiturates Screen NEG Urine Amphetamines Screen NEG Urine Benzodiazepines Screen NEG Urine Cocaine Screen NEG Urine Cannabinoids Screen NEG Blood Urea Nitrogen 20 MG/DL Creatinine 1.05 MG/DL Random Glucose 80 MG/DL Total Protein 7.4 GM/DL Albumin 3.6 GM/DL Calcium Level 8.8 MG/DL Alkaline Phosphatase 85 U/L Aspartate Amino Transf (AST/SGOT) 18 U/L Alanine Aminotransferase (ALT/SGPT) 18 U/L Total Bilirubin 0.6 MG/DL Sodium Level 135 MEQ/L Potassium Level 3.9 MEQ/L Chloride Level 102 MEQ/L Carbon Dioxide Level 26.2 MEQ/L Anion Gap 7 MEQ/L Estimat Glomerular Filtration Rate 50 ML/MIN Triglycerides Level 96 MG/DL Cholesterol Level 260 MG/DL LDL Cholesterol 149 MG/DL HDL Cholesterol 92.3 MG/DL Cholesterol/HDL Ratio 2.81 RATIO Blood Gas Puncture Site RT RADIAL Blood Gas Patient Temperature 98.6 Blood Gas HCO3 28 mmol/L Blood Gas Base Excess 3.4 mmol/L Blood Gas Oxygen Saturation 92 % Arterial Blood pH 7.41 Arterial Blood Partial Pressure CO2 44 mmHg Arterial Blood Partial Pressure O2 66 mmHG Arterial Blood Oxygen Content 16.2 Vol % Arterial Blood Carboxyhemoglobin 1.5 % Arterial Blood Methemoglobin 0.8 % Blood Gas Hemoglobin 12.5 G/DL Blood Gas Inspired Oxygen 21 % Imaging Last Impressions Neck CTA 06/22/171921 Signed Impressions: Service Date/Time: Thursday, June 22, 2017 19:40 - CONCLUSION: Negative CTA of the carotids. Maurice Mendez MD Head CTA 06/22/171921 Signed Impressions: Service Date/Time: Thursday, June 22, 2017 19:38 - CONCLUSION: Negative exam. No evidence of vessel truncation. Maurice Mendez MD Head CT 06/22/17 Signed Impressions: Service Date/Time: Thursday, June 22, 2017 19:29 - CONCLUSION: No acute findings in the brain. No evidence of acute hemorrhage. Ischemic white matter change in the supratentorial brain. Maurice Mendez MD Chest X-Ray 06/22/17 Signed Impressions: Service Date/Time: Thursday, June 22, 2017 20:33 - CONCLUSION: Prominent interstitial markings in periphery both lungs suggesting pulmonary fibrosis. Maurice Mendez MD Brain MRI 06/22/17 Signed Impressions: Service Date/Time: Thursday, June 22, 2017 22:24 - CONCLUSION: 1. Ischemic white matter signal change in the supratentorial brain. 2. No evidence of acute infarction. Maurice Mendez MD Objective Remarks GENERAL: Currently has a headache but is awake alert and oriented talkative and cooperative SKIN: Warm and dry. HEAD: Atraumatic. Normocephalic. EYES: Pupils equal and round. No scleral icterus. No injection or drainage. Extraocular muscles intact ENT: No nasal bleeding or discharge. Mucous membranes pink and moist. Tongue is midline NECK: Trachea midline. No JVD. Supple CARDIOVASCULAR: Regular rate and rhythm. S1 and S2 no S3 or S4 RESPIRATORY: No accessory muscle use. Coarse breath sounds bilaterally. Breath sounds equal bilaterally. GASTROINTESTINAL: Abdomen soft, non-tender, nondistended. Hepatic and splenic margins not palpable. MUSCULOSKELETAL: Extremities without clubbing, cyanosis, or edema. No obvious deformities. NEUROLOGICAL: Awake and alert. No obvious cranial nerve deficits. Motor grossly within normal limits. Five out of 5 muscle strength in the arms and legs. Normal speech. PSYCHIATRIC: Appropriate mood and affect; insight and judgment normal. Procedures NONE REFUSED LP Medications and IVs Current Medications Iohexol (Omnipaque 350 Inj) 90 ml STK-MED ONCE IVCONTRAST Last administered on 06/22/17at 19:53; Start 06/22/17 at 19:53; Stop 06/22/17 at 19:54; Status DC Ondansetron HCl (Zofran Inj) 4 mg ONCE ONCE IV PUSH Last administered on at 20:10; Start 06/22/17 at 20:00; Stop 06/22/17 at 20:01; Status DC Morphine Sulfate (Morphine Inj) 2 mg ONCE ONCE IV PUSH Last administered on 02/27at 20:10; Start 06/22/17 at 20:00; Stop 06/22/17 at 20:01; Status DC Morphine Sulfate (Morphine Inj) 2 mg ONCE ONCE IV PUSH Last administered on 02/27at 21:09; Start 06/22/17 at 21:00; Stop 06/22/17 at 21:01; Status DC Ketorolac Tromethamine (Toradol Inj) 30 mg ONCE ONCE IV PUSH Last administered on 06/22/17at 21:09; Start 06/22/17 at 21:00; Stop 06/22/17 at 21:01 ; Status DC Ceftriaxone Sodium 1000 mg/ Sodium Chloride 100 ml @ 200 mls/hr ONCE ONCE IV Last administered on 06/22/17at 23:01; Start 06/22/17 at 21:45; Stop 06/22/17 at 22:14; Status DC Ceftriaxone Sodium 1000 mg/ Sodium Chloride 100 ml @ 200 mls/hr Q24H IV ; Start 06/23/17 at 22:00 Sodium Chloride 1,000 ml @ 100 mls/hr Q10H IV Last administered on 06/23/17at 04:53; Start 06/22/17 at 21:40 Sodium Chloride (NS Flush) 2 ml UNSCH PRN IV FLUSH FLUSH AFTER USING IV ACCESS ; Start 06/22/17 at 21:45 Sodium Chloride (NS Flush) 2 ml BID IV FLUSH Last administered on 06/23/17at 11: 37; Start 06/23/17 at 09:00 Ondansetron HCl (Zofran Inj) 4 mg Q6H PRN IVP NAUSEA OR VOMITING; Start at 21:45 Acetaminophen (Tylenol) 650 mg Q6H PRN PO FEVER/PAIN SCALE 1 TO 2; Start at 21:45 Acetaminophen/ Hydrocodone Bitart ([place] 5-325 Mg) 1 tab Q4H PRN PO PAIN SCALE 3 TO 5 Last administered on 06/23/17at 11:35; Start 06/22/17 at 21:45 Morphine Sulfate (Morphine Inj) 2 mg Q3H PRN IV PUSH Pain 6-10; Start 06/22/17 at 21:45 Senna/Docusate Sodium (Chana-Colace) 1 tab BID PO Last administered on at 11:35; Start 06/23/17 at 09:00 Magnesium Hydroxide (Milk Of Magnesia Liq) 30 ml Q12H PRN PO Mild constipation ; Start 06/22/17 at 21:45 Sennosides (Senokot) 17.2 mg Q12H PRN PO Moderate constipation; Start 06/22/17 at 21:45 Bisacodyl (Dulcolax Supp) 10 mg DAILY PRN RECTAL SEVERE CONSITIPATION; Start at 21:45 Lactulose (Lactulose Liq) 30 ml DAILY PRN PO SEVERE CONSITIPATION; Start at 21:45 Aspirin (Ecotrin Ec) 81 mg DAILY PO Last administered on 06/23/17at 11:35; Start 06/23/17 at 09:00 Pravastatin Sodium (Pravachol) 40 mg DAILY PO Last administered on 06/23/17at 11 :35; Start 06/23/17 at 09:00 Levothyroxine Sodium (Synthroid) 88 mcg DAILY@0600 PO Last administered on 06/23at 05:31; Start 06/23/17 at 06:00 Prednisone (Deltasone) 5 mg DAILY PO Last administered on 06/23/17at 11:35; Start 06/23/17 at 09:00 Ascorbic Acid (Vitamin C) 500 mg DAILY PO Last administered on 06/23/17at 11:35 ; Start 06/23/17 at 09:00 Fluoxetine HCl (PROzac) 40 mg DAILY PO ; Start 06/23/17 at 09:00 Enalaprilat (Vasotec Inj) 1.25 mg Q6H PRN IV PUSH SYSTOLIC >200; Start at 21:45 A/P Problem List: (1) TIA (transient ischemic attack) ICD Code: G45.9 - Transient cerebral ischemic attack, unspecified Status: Acute (2) Cephalgia ICD Code: R51 - Headache Status: Acute (3) HTN (hypertension) ICD Code: I10 - Essential (primary) hypertension (4) UTI (urinary tract infection) ICD Code: N39.0 - Urinary tract infection, site not specified Status: Acute Assessment and Plan 1. TIA: acute onset of headache w/ transient visual deficits while in ER, now resolved. CT Head negative, CTA Neck/Head negative for acute findings, images reviewed by me. Dr. Arriaga consulted, recommended further eval w/ MRI, currently pending. Will follow up MRI. Neuro checks. Recent eval by Dr. Hartman as outpatient for gait instability, will consult. 2. Cephalgia: w/ associated nausea, no vomiting, possibly related to uncontrolled HTN. ESR minimally elevated, on chronic steroid therapy, unlikely vasculitis/arteritis. Continue w/ analgesics/antiemetics. LP offered, however pt declined. Monitor neuro status closely. -CLEARED FOR DISCHARGE BY NEUROLOGY 3. HTN: Uncontrolled. BP 208/97, HR 72, likely secondary to pain complaints, now down to 169/75, HR 75 after analgesia. Optimize pain control, monitor BP, antihypertensives for BP >200 --start on Norvasc 5 mg 4. UTI: U/a w/ UTI. Start IV Rocephin. Follow up urine cultures, IVF for hydration. Switch to Ceftin 5. DVT Prophylaxis: SCD/teds. 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 7. Case discussed at length with ER physician, lab/records/imaging reviewed by me. WANTS TO GO HOME LATER TODAY Discharge Planning IF HEADACHE IMPROVES TREAT UTI Problem Qualifiers (1) TIA (transient ischemic attack): Qualified Codes: G45.9 - Transient cerebral ischemic attack, unspecified (2) Cephalgia: Qualified Codes: G44.53 - Primary thunderclap headache (3) UTI (urinary tract infection): Qualified Codes: N39.0 - Urinary tract infection, site not specified Emanuel Gross DO Jun 23, 2017 12:14
--- NOTE | 2017-06-23 12:21 | MB ---
cc: NEAL DUMONT MD,ESTHER HOWE,ERNESTINE CRUZ MD DATE OF CONSULTATION: 06/23/2017 DATE OF : 1935, 82 years old. REASON FOR CONSULTATION: Possible TIA. HISTORY OF PRESENT ILLNESS: This is an 82 year-old woman with a history of rheumatoid arthritis, pulmonary fibrosis, on O2 therapy only at night time and chronic steroid therapy, follows with Dr. Dumont. She has been seen also by my associate, Dr. Hartman, in the office for workup for balance as well as small handwriting and other issues. She comes in by EMS for severe headache, left-sided, that started early in the night, constant, 10/10, with some nausea. She came in with a blood pressure of 196/98, sating at 98%, two liters. Heart rate of 70. CBC was unremarkable. Troponin was negative, sed rate was 31, drug screen was negative but she did have a UTI. CT of the head did not show anything acute. Her headache is mild now. There was some questionable visual disturbance when I was called by the ED physician, however, when she rechecked it, there was not any so this patient was not a candidate for TPA. Therapy was offered but she declined it. She is not septic and she does not exhibit any nuchal rigidity. PAST MEDICAL HISTORY: As stated. ALLERGIES SULFA. FAMILY HISTORY: Noncontributory. SOCIAL HISTORY Does not drink, smoke or use drugs. PHYSICAL EXAMINATION: VITAL SIGNS: Temperature is 98.2, she has been afebrile since admission. Pulse 70, respiratory rate 20, blood pressure 178/88. Prior to that 135/67. Sating at 97% on room air. NECK: Supple. HEART: Regular. NEUROLOGIC: She is awake, alert, she is oriented. She is fluent. Pupils reactive. Visual gar are full. Face symmetrical. Tongue midline. Motor moreau, there is no drift or leg lag. Cerebellar testing is normal. DTRs are 1+. Toes are downgoing. Gait is withheld at this time. LABORATORY DATA: Her coag panel is entirely normal. CBC: White count 8.2, hemoglobin 13.2, hematocrit 38.6, platelet count 276,000. Sed rate is 31. Chemistry: Sodium 135, BUN 20, creatinine 1.05, GFR 50, cholesterol 260, LDL 149. HDL 92.3. Triglycerides are 96. Urine: She has large leukocyte esterase, 48 white cells. Toxicology screen is negative. I don't see a urine culture. IMAGING STUDIES: CTA of the picayune of [place] and carotids were unremarkable. No aneurysm. No intracranial disease. No stenosis. MRI of the brain shows chronic white matter disease but there is no acute infarct. There is also some atrophy noted. Looking at the diffusion myself, I don't see any infarcts. There is notable atrophy, does not look like a hydrocephalus, however. IMPRESSION 1. The patient is an 82 year-old woman with questionable TIA. 2. Accelerated hypertension. 3. UTI. RECOMMENDATIONS: 1. Recommend continuing her on Rocephin, baby aspirin, continue her Pravastatin. If she was on a lower dose, it should be increased. 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 She follows with Dr. Howe, rheumatology, and she gets Remicade. 2. If her blood pressure is still elevated, she needs to be started on an antihypertensive. She has a pulse ox as well as a blood pressure machine at home that she can monitor. I will go ahead and get an ABG, thyroid panel and an EEG on her. If she is stable by the end of this afternoon from my perspective she can be discharged home and follow up with Dr. Hartman, follow up with Dr. Dumont and with Dr. Howe, rheumatology. MD VALE Hutchins/HE /11:29 AM /12:04 PM
[2017-06-23 12:28] LABS: FREE T4 0.93 NG/DL (0.76-1.46)
[2017-06-23] MEDS ORDERED: CEFD125S PO (13:58)
[2017-06-23] MEDS ORDERED: PRAV40TA PO (13:58)
[2017-06-23] MEDS ORDERED: ECASA81 PO (13:58)
[2017-06-23] MEDS ORDERED: HYDR-3516 PO (13:58)
--- NOTE | 2017-06-23 14:00 | HHI.DS ---
Discharge Summary Admission Date Jun 22, 2017 at 21:41 Discharge Date: Jun 23, 2017 Admitting Diagnosis TIA; cephalgia; uti; htn (1) TIA (transient ischemic attack) ICD Code: G45.9 - Transient cerebral ischemic attack, unspecified Diagnosis: Principal Status: Acute (2) Cephalgia ICD Code: R51 - Headache Diagnosis: Principal Status: Acute (3) HTN (hypertension) ICD Code: I10 - Essential (primary) hypertension Diagnosis: Principal (4) UTI (urinary tract infection) ICD Code: N39.0 - Urinary tract infection, site not specified Diagnosis: Principal Status: Acute Procedures NONE REFUSED LP Brief History - From Admission This is an 82-year-old female with a PMH of Rheumatoid Arthritis and Pulmonary Fibrosis on Chronic Steroid Therapy was brought to the ER by EMS secondary to acute onset of severe headache. Per patient, states she had sudden onset of left-sided frontal headache starting earlier tonight. Pain is constant, severe , 10/10, non-radiating, associated w/ nausea, no vomiting. Denies visual disturbance. No h/o headache in the past. Upon further questioning, states she was referred to Dr. Hartman approx 2wks ago for eval of "gait imbalance" and worsening handwriting. States she had outpatient imaging done but does not know results. On arrival, BP 196/98, HR 70, O2 sat 98% to 2L NC, Afebrile. CBC unremarkable. ESR 31. BUN 26. Troponin negative. 1.0. UTI. Urine Drug screen negative. CT Head with no acute findings. CXR with pulmonary fibrosis. CTA Neck negative. CTA Brain negative. While in ER, concern for possible visual disturbance and CVA, at which time Stroke Alert initiated by ER physician. Dr. Arriaga consulted, pt not TPA candidate, recommended further eval w/ MRI. Pt offered LP, however declined. CBC/BMP: 06/23/17 0810 06/23/17 0810 Significant Findings Laboratory Tests Test 06/22/17 19:20 06/22/17 20:24 06/23/17 08:10 06/23/17 11:35 Red Blood Count 3.94 MIL/MM3 (4.00-5.30) Neutrophils (%) (Auto) 75.4 % (16.0-70.0) Erythrocyte Sedimentation Rate 31 mm/hr (0-30) Bedside Chloride 101 MMOL/L (102-111) Bedside Blood Urea Nitrogen 26 MG/DL (5-21) Troponin I LESS THAN 0.02 NG/ML Urine Turbidity HAZY (CLEAR) Urine Occult Blood TRACE (NEG) Urine Nitrite POS (NEG) Urine Leukocyte Esterase LARGE (NEG) Urine WBC 48 /hpf (0-5) Urine Bacteria MANY /hpf (NONE) Urine Mucus FEW /lpf (OCC) Monocytes (%) (Auto) 10.4 % (0.0-8.0) Eosinophils (%) (Auto) 4.6 % (0.0-4.0) Blood Urea Nitrogen 20 MG/DL (7-18) Creatinine 1.05 MG/DL (0.50-1.00) Sodium Level 135 MEQ/L (136-145) Estimat Glomerular Filtration Rate 50 ML/MIN (>89) Cholesterol Level 260 MG/DL (120-200) LDL Cholesterol 149 MG/DL (0-99) HDL Cholesterol 92.3 MG/DL (40.0-60.0) Blood Gas HCO3 28 mmol/L (22-26) Blood Gas Base Excess 3.4 mmol/L (-2-2) Arterial Blood Partial Pressure CO2 44 mmHg (38-42) Imaging Last Impressions Neck CTA 06/22/171921 Signed Impressions: Service Date/Time: Thursday, June 22, 2017 19:40 - CONCLUSION: Negative CTA of the carotids. Maurice Mendez MD Head CTA 06/22/171921 Signed Impressions: Service Date/Time: Thursday, June 22, 2017 19:38 - CONCLUSION: Negative exam. No evidence of vessel truncation. Maurice Mendez MD Head CT 06/22/17 0000 Signed Impressions: Service Date/Time: Thursday, June 22, 2017 19:29 - CONCLUSION: No acute findings in the brain. No evidence of acute hemorrhage. Ischemic white matter change in the supratentorial brain. Maurice Mendez MD Chest X-Ray 06/22/17 0000 Signed Impressions: Service Date/Time: Thursday, June 22, 2017 20:33 - CONCLUSION: Prominent interstitial markings in periphery both lungs suggesting pulmonary fibrosis. Maurice Mendez MD Brain MRI 06/22/17 0000 Signed Impressions: Service Date/Time: Thursday, June 22, 2017 22:24 - CONCLUSION: 1. Ischemic white matter signal change in the supratentorial brain. 2. No evidence of acute infarction. Maurice Mendez MD PE at Discharge GENERAL: Currently has a headache but is awake alert and oriented talkative and cooperative SKIN: Warm and dry. HEAD: Atraumatic. Normocephalic. EYES: Pupils equal and round. No scleral icterus. No injection or drainage. Extraocular muscles intact ENT: No nasal bleeding or discharge. Mucous membranes pink and moist. Tongue is midline NECK: Trachea midline. No JVD. Supple CARDIOVASCULAR: Regular rate and rhythm. S1 and S2 no S3 or S4 RESPIRATORY: No accessory muscle use. Coarse breath sounds bilaterally. Breath sounds equal bilaterally. GASTROINTESTINAL: Abdomen soft, non-tender, nondistended. Hepatic and splenic margins not palpable. MUSCULOSKELETAL: Extremities without clubbing, cyanosis, or edema. No obvious deformities. NEUROLOGICAL: Awake and alert. No obvious cranial nerve deficits. Motor grossly within normal limits. Five out of 5 muscle strength in the arms and legs. Normal speech. PSYCHIATRIC: Appropriate mood and affect; insight and judgment normal. Hospital Course This is an 82-year-old female with a PMH of Rheumatoid Arthritis and Pulmonary Fibrosis on Chronic Steroid Therapy was brought to the ER by EMS secondary to acute onset of severe headache. Per patient, states she had sudden onset of left-sided frontal headache starting earlier tonight. Pain is constant, severe , 10/10, non-radiating, associated w/ nausea, no vomiting. Denies visual disturbance. No h/o headache in the past. Upon further questioning, states she was referred to Dr. Hartman approx 2wks ago for eval of "gait imbalance" and worsening handwriting. States she had outpatient imaging done but does not know results. On arrival, BP 196/98, HR 70, O2 sat 98% to 2L NC, Afebrile. CBC unremarkable. ESR 31. BUN 26. Troponin negative. 1.0. UTI. Urine Drug screen negative. CT Head with no acute findings. CXR with pulmonary fibrosis. CTA Neck negative. CTA Brain negative. While in ER, concern for possible visual disturbance and CVA, at which time Stroke Alert initiated by ER physician. Dr. Arriaga consulted, pt not TPA candidate, recommended further eval w/ MRI. Pt offered LP, however declined. 2-11 has a headache right now but is improved MRIs all been negative. Can hopefully be discharged later today Cleared by neurology Dr. ARRIAGA Is scheduled to follow-up with pulmonary tomorrow EEG has been ordered ABG has been ordered And patient can be discharged later today AFTER THESE HAVE BEEN DONE CONTINUE ASPIRIN AND PRAVACHOL AND ADD NORVASC 5MG 1. TIA: acute onset of headache w/ transient visual deficits while in ER, now resolved. CT Head negative, CTA Neck/Head negative for acute findings, images reviewed by me. Dr. Arriaga consulted, recommended further eval w/ MRI, currently pending. Will follow up MRI. Neuro checks. Recent eval by Dr. Hartman as outpatient for gait instability, will consult. 2. Cephalgia: w/ associated nausea, no vomiting, possibly related to uncontrolled HTN. ESR minimally elevated, on chronic steroid therapy, unlikely vasculitis/arteritis. Continue w/ analgesics/antiemetics. LP offered, however pt declined. Monitor neuro status closely. -CLEARED FOR DISCHARGE BY NEUROLOGY 3. HTN: Uncontrolled. BP 208/97, HR 72, likely secondary to pain complaints, now down to 169/75, HR 75 after analgesia. Optimize pain control, monitor BP, antihypertensives for BP >200 4. UTI: U/a w/ UTI. Start IV Rocephin. Follow up urine cultures, IVF for hydration. 5. DVT Prophylaxis: SCD/teds. 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 7. Case discussed at length with ER physician, lab/records/imaging reviewed by me. WANTS TO GO HOME LATER TODAY Discharge Planning IF HEADACHE IMPROVES TREAT UTI Pt Condition on Discharge: Good Discharge Disposition: Discharge Home Discharge Time: <= 30 minutes Discharge Instructions DIET: Follow Instructions for: Heart Healthy Diet Speech Therapy-Diet Recommends: Regular Activities you can perform: Regular-No Restrictions Follow up Referrals: Appointment for Follow Up - 1 Week with Jj Howe MD Neurology - 1 Week with Favian Hartman MD PCP Follow-up - 1 Week Pulmonology - 06/24/17 with Riaz Dumont MD New Medications: [Omnicef] () 300 MG PO BID for Infection for 10 Days, #[address] (Aspirin DR) 81 Mg Tabdr 81 MG PO DAILY for Blood Clot Prevention, #30 TAB Hydrocodone/Acetaminophen (Hydrocodone-Acetamin 5-325 mg) 5 Mg-325 Mg Tablet 1 TAB PO Q4H PRN for PAIN, #40 TAB Pravastatin (Pravachol) 40 Mg Tab 80 MG PO DAILY for Cholesterol Management, #60 TAB Continued Medications: Ascorbic Acid (Vitamin C) 250 Mg Chew 500 MG CHEW DAILY for Nutritional Supplement, #30 TAB 0 Refills Fluoxetine (Prozac) 40 Mg Cap 40 MG PO DAILY, #30 CAP 0 Refills Levothyroxine (Levothyroxine) 88 Mcg Tab 88 MCG PO DAILY for Thyroid, #30 TAB 0 Refills Methenamine Hippurate (Methenamine Hippurate) 1 Gram Tab 1 GM PO BID for Infection, TAB 0 Refills Prednisone (Prednisone) 5 Mg Tab 5 MG PO DAILY, TAB 0 Refills Zolpidem (Ambien) 5 Mg Tab 5 MG PO HS PRN for INSOMNIA, TAB 0 Refills Emanuel Gross DO Jun 23, 2017 14:00
--- NOTE | 2017-06-23 18:25 | ECHRPT ---
Indication: CVA/TIA CONCLUSIONS The left ventricular systolic function is low normal with an estimated ejection fraction in the rang e of 50- 55%. Doppler parameters are consistent with impaired left ventricular relaxtion (grade 1 diastolic dysfun ction). Mild mitral valve regurgitation. There is trace tricuspid valve regurgitation. BP: / HR: Rhythm: MEASUREMENTS (Male / Female) Normal Values Technical Quality:Good 2D ECHO LV Diastolic Diameter PLAX 4.9 cm 4.2 - 5.9 / 3.9 - 5.3 cm LV Systolic Diameter PLAX 3.6 cm IVS Diastolic Thickness 1.1 cm 0.6 - 1.0 / 0.6 - 0.9 cm LVPW Diastolic Thickness 0.8 cm 0.6 - 1.0 / 0.6 - 0.9 cm LV Relative Wall Thickness 0.4 RV Internal Dim ED PLAX 1.9 cm LA Systolic Diameter LX 3.3 cm 3.0 - 4.0 / 2.7 - 3.8 cm DOPPLER Mitral E Point Velocity 75.0 cm/s Mitral A Point Velocity 103.0 cm/s Mitral E to A Ratio 0.7 TR Peak Velocity 246.0 cm/s TR Peak Gradient 24.2 mmHg FINDINGS LEFT VENTRICLE Normal left ventricular size. Wall thickness is normal. The left ventricular systolic function is low normal with an estimated ejection fraction in the rang e of 50- 55%. Doppler parameters are consistent with impaired left ventricular relaxtion (grade 1 diastolic dysfun ction). RIGHT VENTRICLE Normal right ventricular size and systolic function. LEFT ATRIUM The left atrial size is normal. RIGHT ATRIUM The right atrial size is normal. ATRIAL SEPTUM Normal atrial septal thickness. AORTA The aortic root and proximal ascending aorta are normal in size on limited imaging. MITRAL VALVE Structurally normal mitral valve. Mild mitral valve regurgitation. Mitral annular calcification is present. AORTIC VALVE Trileaflet aortic valve. No aortic valve stenosis or regurgitation. TRICUSPID VALVE Structurally normal tricuspid valve There is trace tricuspid valve regurgitation. PULMONARY VALVE The pulmonary valve is not well visualized. VESSELS The inferior vena cava is normal in size. PERICARDIUM No pericardial effusion. Alfredo Castro DO (Electronically Signed) Final Date:23 June 2017 18:24
--- NOTE | 2017-06-23 20:22 | MG ---
cc: ESTHER ARRIAGA M.D. Lab No: Date: 06/23/2017 Age: Sex: F Race: DATE OF 1935, 82 years old EEG NUMBER [id number] ROOM G80 With photic stimulation. Alert, drowsy, asleep study. MRI does not show any acute infarct only chronic white matter changes. She is admitted with worsening headache and hypertension. History of rheumatoid arthritis. Possible sleep apnea. Hypertension. Pulmonary fibrosis. MEDICATIONS On: 1. Aspirin. 2. Pravachol. 3. Deltasone. 4. Synthroid. 5. [place]. DESCRIPTION OF RECORD The patient's background rhythms shows an overall 8 Hz alpha, fairly symmetrical. Some myogenic artifact without any significant hindrance to the study. EKG looks to be in sinus rhythm. Some snoring maybe related to the patient's history of sleep apnea. The patient felt asleep, woke up and photic stimulation does elicit posterior driving response. IMPRESSION Overall normal-appearing EEG without any gross epileptiform features in this recording. Clinical correlation. MD VALE Hutchins/[place] /7:36 PM /7:40 PM
[2017-06-23] MEDS ORDERED: cefTRIAXone INJ 1,000 MG in SODIUM CHLORIDE 0.9% INJ 100 ML IV SCH (22:00)
== END 2017-06-23 17:23 | disposition home or self-care (01) ==
LOC: NEPC 19:14 → NEDA 21:41 → INTOOBSV 21:41 → NEPGCP 22:47
PROVIDERS: ADMIT Hospitalist; ATTEND Hospitalist
DX: G44.53 Primary thunderclap headache (principal); G45.9 Transient cerebral ischemic attack, unspecified; I10 Essential (primary) hypertension; N39.0 Urinary tract infection, site not specified; J84.10 Pulmonary fibrosis, unspecified; M06.9 Rheumatoid arthritis, unspecified; R94.31 Abnormal electrocardiogram [ECG] [EKG]; R29.701 NIHSS score 1; Z79.52 Long term (current) use of systemic steroids
CPT/HCPCS: 36600; 70450; 70496; 70498; 70551; 71045; 80048; 80053; 80061; 80307; 81001; 82550; 82805; 84439; 84443; 84484; 85025; 85384; 85610; 85652; 85730; 86850; 86900; 86901; 93005; 93306; 95819; 96361; 96365; 96375; 96376; 97161; 99285; G0378; G8987; G8988; J0696; J1885; J2270; J2405; J7030; J7512; Q9967